=== PATIENT | male | born 1955 | race Caucasian/White ===

== ENCOUNTER 2021-07-25 17:16 | Emergency (ER) | payer OTHER, SELFPAY ==
[2021-07-25] VITALS (20 sets, daily range): BP systolic 135–177; BP diastolic 78–89; PULSE 66–85; RESP 14–18; TEMP 36.8; O2SAT 93–99
--- NOTE | ~2021-07-25 | CT_ITS ---
EXAMINATION: CT cervical spine wo con, CT brain wo con EXAM DATE: 07/25/2021 19:10 INDICATION: Head injury, tree limb hit him and then fell 14 feet. TECHNIQUE: Spiral CT of the head was performed without contrast. Axial, coronal and sagittal images were reviewed. Spiral CT of the cervical spine was performed without contrast. Axial images were rev iewed. Coronal and sagittal reformatted images were also reviewed. The dose-length product (DLP) fo r this examination was 511.20 (accession [id number]), 605.33 (accession [id number]) mGy-cm. The exposure was tailored according to patient size, and iterative reconstruction (ASIR) was used as additional dose reduction technique. There is no prior study for comparison. FINDINGS: HEAD CT: There is no acute intraparenchymal hemorrhage. No evidence of intraparenchymal brain mass l esion. No evidence of acute infarction. There is no mass effect or midline shift. There is no obstru ctive hydrocephalus suspected. There are no extra-axial collections. There are no acute calvarial f ractures. The orbits are unremarkable. There is left periorbital swelling, the globe is unremarkabl e. The visualized sinuses and mastoid air cells are well aerated. There is an old right medial orbi kevin wall fracture. CERVICAL CT: There is no evidence of acute cervical fracture. The odontoid process is intact. Pre- dens space is normal. Prevertebral soft tissue is normal. There are no soft tissue abnormalities id entified. There is no disc space widening or traumatic vertebral body subluxation suspected. There is moderate cervical spondylosis. A detailed level by level evaluation of spondylosis can be added a s addendum if requested. IMPRESSION: 1. No acute intracranial findings or cervical fracture. 2. Left periorbital swelling. Reviewed, dictated and finalized at location A. NE TEST CELL TECHNICIAN IMPRESSION: 1. No acute intracranial findings or cervical fracture. 2. Left periorbital swelling.
--- NOTE | ~2021-07-25 | XR_ITS ---
EXAMINATION: XR ankle LT min 3V EXAM DATE: 07/25/2021 18:13 INDICATION: Fall from ladder. Left ankle pain. Initial encounter. TECHNIQUE: Left ankle frontal, lateral and oblique projections obtained and reviewed. There is no pr ior study for comparison. FINDINGS: There is acute closed posttraumatic fracture through the medial malleolar base, will likely require orthopedic fixation. There is about 3 mm distraction. There is ossification distal to the fibular tip, uncertain whether or not this could be an acute avul landy fracture, but the mortise relationship appears intact. Overlying soft tissue swelling. IMPRESSION: 1. Acute left medial malleolar base fracture. 2. Age-indeterminate fibular avulsion fracture. Reviewed, dictated and finalized at location A. TECHNICIAN
--- NOTE | ~2021-07-25 | CT_ITS ---
EXAMINATION: CTA chest abdomen pelvis EXAM DATE: 07/25/2021 19:11 INDICATION: Fell 14 feet. Chest abdomen and pelvis pain. Periorbital swelling. TECHNIQUE: Spiral CT of the chest, abdomen and pelvis was performed following intravenous injection o f 100 mL Omnipaque 350. Axial, coronal and sagittal images chest, abdomen and pelvis were reviewed. Coronal maximum intensity pixel images of chest reviewed. The dose-length product (DLP) for this ex amination was 1893.51 mGy-cm. The exposure was tailored according to patient size (auto mA exposure control), and iterative reconstruction (ASIR) was used as additional dose reduction technique. There is no prior study for comparison. FINDINGS: There is an acute L1 burst fracture with mild loss of this vertebral body height posteriorly, about 3 mm of retropulsion of the superior half, mild to moderate loss of its height anteriorly and centrall y. There is acute right L1 transverse process fracture. No other acute fractures are identified. CHEST: The lungs are clear. There are no pleural or pericardial effusions. Tracheobronchial tree is patent. There is no mediastinal, hilar or axillary lymphadenopathy. There is no pneumothorax. Heart normal in size. ABDOMEN PELVIS: The liver, spleen, adrenal glands and pancreas are unremarkable. Gallbladder is unre markable. No biliary obstruction. Portal and splenic veins are patent. Kidneys enhance symmetrical ly. There is no hydronephrosis. There is 4 mm right superior calyceal stone, punctate left inferior calyceal stone. The prostate is unremarkable. The bladder is unremarkable. There is no retroperito jonathan or pelvic lymphadenopathy. Small umbilical fat-containing hernia. The appendix is normal. The stomach and small bowel are unremarkable. There is expected amount of c olonic stool. No free intraperitoneal gas. IMPRESSION: 1. Acute L1 burst fracture and right L1 transverse process fracture. 2. No solid organ injury. 3. Nephrolithiasis. Reviewed, dictated and finalized at location A. AR[employer]
--- NOTE | 2021-07-25 17:37 | ED.FALL ---
HPI - Fall General Chief Complaint: Fall Stated Complaint: fall from tree 14 ft Time Seen by Provider: 07/25/21 17:29 Source: RN notes reviewed History of Present Illness HPI Narrative: Patient presents emergency department from home for a fall. Patient states he is approximately 14 feet up in a tree cutting off a tree when he states that 1 fell to the ground and bounced back striking him in the head causing him to fall backwards off of the tree patient states he fell approximately 14 feet he notes a wound to his left forehead with swelling of his left upper eyelid as well as pain in his left ankle he denies any loss of consciousness states he was able to get up and ambulate on his own went home took shower and came to the ER for further evaluation states he took a muscle relaxer at home notes pain in his lower back as well as in his head he denies taking blood thinners except for a baby aspirin daily denies any vision changes chest pain shortness of breath abdominal pain or any other symptoms Related Data Home Medications Medication Instructions Recorded Confirmed aspirin 07/25/21 atorvastatin 07/25/21 07/25/21 niacin 07/25/21 07/25/21 omega-3 fatty acids [Fish Oil] PO 07/25/21 Allergies Allergy/AdvReac Type Severity Reaction Status Date / Time No Known Allergies Allergy Verified 07/25/21 17:43 Review of Systems Review of Systems: Gen.: Denies fevers or chills Eyes: Denies eye pain or visual change ENT: Denies congestion Respiratory: Denies shortness of breath or cough CV: Denies chest pain or palpitations GI: Denies abdominal pain nausea, emesis or diarrhea Musculoskeletal: See HPI Neuro: Ports head injury Skin: Denies rash Except as documented, all other systems reviewed and negative PMFSH Past Medical History Medical History (Updated 07/25/21 @ 20:47 by Bernardino Blandon DO) Hypercholesterolemia Social History Social History (Updated 07/25/21 @ 17:39 by Bernardino Blandon DO) Smoking status: Never smoker Exam Narrative: APPEARANCE: Well appearing, no apparent distress, well-nourished. HEENT: normocephalic superficial abrasion of the left anterior forehead with swelling of the left upper eyelid with ecchymosis present, TMs clear bilaterally. Oral mucosa moist. No tenderness over bilateral zygomatic arch. Full range of motion of jaw without pain. EYES: PERRL, EOMI, no conjunctival erythema NECK: C-collar present, supple. No midline tenderness to palpation. RESPIRATORY: No respiratory distress. Clear to auscultation bilaterally CARDIOVASCULAR: Regular rate and rhythm without murmurs rubs or gallops. ABDOMINAL: Soft, nontender, nondistended, no rebound or guarding MUSCULOSKELETAl: Moves all extremities. No tenderness to palpation of bilateral upper and right lower extremities. No clubbing cyanosis or edema no tenderness of the left hip or knee, tender palpation of the left ankle diffusely mild swelling no tenderness of the foot of the proximal fibula Celsius pulse 2+ neurovascular intact Back: No midline thoracic or lumbar tenderness to palpation tender palpation bilateral paravertebral cells L2-5 Pelvis: Stable, nontender NEURO: Awake and alert ?3. Follows commands. Speech normal. No focal deficits. SKIN:: Warm, dry. Normal Color Course Course Emergency Course: Discussed with patient results of work-up discussed need for transfer in agreement at this time No beds available at [facility] at this time Patient accepted for transfer at [facility] emergency department by Dr. Livingston Vital Signs Vital signs: Vital Signs Temperature 98.3 F 07/25/21 17:36 Pulse Rate 68 07/25/21 17:36 Respiratory Rate 18 07/25/21 17:36 Blood Pressure 141/87 H 07/25/21 17:36 Pulse Oximetry 99 07/25/21 17:36 Temperature 98.3 F 07/25/21 17:36 Pulse Rate 85 07/25/21 21:18 Respiratory Rate 14 07/25/21 21:18 Blood Pressure 156/89 H 07/25/21 21:18 Pulse Oximetry 97
--- NOTE | 2021-07-25 17:37 | PC.NURSE ---
called for triage with no answer
--- NOTE | 2021-07-25 18:07 | PC.NURSE ---
CT scan called, Pt has IV access
[2021-07-25 18:19] LABS: Basophils Percent Auto 0.2 % (0.2-1.2); Eosinophils Percent Auto 0.1 % (0-4.4); Hemoglobin 15.4 g/dL (14.0-18.0); Immature Granulocyte Absolute 0.11 K/mm3 (0.00-0.031); Immature Granulocyte Percent A 0.6 % (0-0.5); Lymphocytes Absolute Auto 0.99 K/mm3 (0.9-3.2); Lymphocytes Percent Auto 5.4 % (18.3-44.2); Mean Corpuscular HGB Conc 32.8 g/dl (32-36); Mean Corpuscular Hemoglobin 29.9 pg (26-34); Mean Corpuscular Volume 91.3 fl (80-100); Mean Platelet Volume 9.9 fl (7.4-10.4); Monocytes Absolute Auto 0.9 K/mm3 (0.1-0.6); Monocytes Percent Auto 5.2 % (2.6-8.5); Neutrophils Absolute Auto 16.1 K/mm3 (1.3-6.7); Neutrophils Percent Auto 88.5 % (45.5-73.1); Platelet Count Result 190 k/mm3 (150-375); Red Blood Count 5.15 M/mm3 (4.6-6.20); Red Cell Distribution Width 12.9 % (11.5-14.5); White Blood Count 18.2 K/mm3 (4.5-10.0)
[2021-07-25 18:30] LABS: Alanine Aminotransferase 39 U/L (4-50); Albumin Level 4.6 g/dL (3.5-5.1); Alkaline Phosphatase 83 U/L (38-126); Anion Gap 10 mmol/L (8-16); Aspartate Amino Transferase 58 U/L (17-59); Bilirubin,Total 1.3 mg/dL (0.2-1.3); Blood Urea Nitrogen 25 mg/dL (9-20); Carbon Dioxide 26 mmol/L (22-30); Chloride 103 mmol/L (98-107); Estimated CRCL calculation 55 ml/min; Estimated Glomerular Filt Rate 47; Glucose 147 mg/dL (65-110); Potassium 4.5 mmol/L (3.4-5.0); Sodium 139 mmol/L (137-145)
[2021-07-25 18:33] LABS: Prothrombin Time 13.1 Seconds (11.1-14.7)
[2021-07-25 18:34] LABS: Partial Thromboplastin Time 27.6 SECONDS (22.3-36.8)
[2021-07-25 18:52] LABS: Calcium 9.3 mg/dL (8.4-10.2)
[2021-07-25] MEDS: SODIUM CHLORIDE 0.9% IV 1,000 ML 999 ML IV CONT (20:15)
[2021-07-25] MEDS: MORPHINE SULFATE (*CRX) 2 MG/ML INJ IV PUSH (20:16)
[2021-07-25] MEDS: TETANUS,DIPHTHERIA,AC PERTUSSIS ADULT (0.5 ML) BOOSTRIX IM (20:16)
--- NOTE | 2021-07-25 20:51 | PC.NURSE ---
Report called to Jolanta Kwong RN at [facility] ([phone]).
== END 2021-07-25 21:20 | disposition short-term general hospital (02) ==
PROVIDERS: Emergency Provider Emergency Medicine; PCP Internal Medicine
DX: S32.011A Stable burst fracture of first lumbar vertebra, initial encounter for closed fracture (principal); S12.090A Other displaced fracture of first cervical vertebra, initial encounter for closed fracture; S82.52XA Displaced fracture of medial malleolus of left tibia, initial encounter for closed fracture; N28.9 Disorder of kidney and ureter, unspecified; Z23 Encounter for immunization; E78.00 Pure hypercholesterolemia, unspecified; Z79.82 Long term (current) use of aspirin; N20.0 Calculus of kidney; W14.XXXA Fall from tree, initial encounter
CPT/HCPCS: 29515; 36415; 70450; 71275; 72125; 73610; 74174; 80053; 85025; 85610; 85730; 90471; 90715; 96361; 96374; 99285; J2270; J7030; Q9967